=== PATIENT | female | born 1950 | race Caucasian/White ===

== ENCOUNTER 2023-04-23 13:11 | Day surgery (SDC) | payer MEDICARE ==
[~2023-04-23] VITALS: Ht 177.8 cm; Wt 82.6 kg
[2023-04-23] VITALS (7 sets, daily range): BP systolic 172–185; BP diastolic 70–86; PULSE 59–68; TEMP 97.5–98
[~2023-04-23 13:11] MED LIST: ASHWAGANDHA500 MG PO; ASPIRIN E.C. 8181 MG PO; B COMPLEX #11 TA1 PO; BETAPACE 120MG120 MG PO; BIOTIN5000 MCG PO; CEPHALEXIN500 M1 PO; COUMADIN4 MG PO; ELDERBERRY PO; ELIQUIS 5MG PO; EPA FISH OIL1 SGL PO; ESTRACE 1MG1 MG/TAB PO; FLAXSEED OIL1000 MG PO; GARCINIA CAMBOGIA PO; GINKGO4 PO; GREEN TEA EXTR250 MG PO; HCTZ12.5TAB PO; INVANZ INJ1 G/VIAL IV; KERATIN PO; LIPITOR 10MG10 MG PO; MAGNESIUM500 MG PO; MICROZIDE12.5 MG PO; OSCAL 500 TAB500 MG PO; PHARMASSURE ZIN50 MG PO; PRENATAL TABLET PO; PROVERA5 MG; SYNTHROID 0.0.025 MG PO; TAMBOCOR 1100 MG/TAB PO; TOPROL XL 25MG25 MG PO; UBIQUINOL100 MG PO; VITAMIN D31000 I1 PO; VITAMIN E 400 U4001 PO; VITAMINC1000TA PO
--- NOTE | 2023-04-23 17:30 | NUR ---
1550 RETURNS TO ROOM 3 PER CART. AWAKE, ALERT. RESP UNLABORED. AMBULATES TO RECLINER WITH STANDBY ASSIST. DENIES NAUSEA OR ABD PAIN. VITAL SIGNS OBTAINED. WARM BLANKETS APPLIED. CALL LIGHT AT SIDE. DAUGHTER IN ROOM 1605 AWAKE, ALERT. DENIES PAIN. REST ENCOURAGED 1620 CONTINUES TO DENY PAIN OR NAUSEA 1635 TOLERATES SMALL AMOUNT OF WATER PO 1700 IV FLUID DC'D. PICC LINE RIGHT ARM FLUSHED WITHOUT DIFFICULTY 1705 AMBULATES TO BATHROOM WITH STANDBY ASSIST. ADMITS TO VOIDING WITHOUT DIFFICULTY 1710 TOLERATES WATER AND JELLO PO. DENIES PAIN OR NAUSEA 1715 DISCHARGE INSTRUCTIONS REVIEWED. PATIENT VERBALIZES UNDERSTANDING. COPY PROVIDED IN DISCHARGE FOLDER 1725 PATIENT UP IN ROOM DRESSES SELF. DAUGHTER AT SIDE
== END 2023-04-23 17:35 | disposition home or self-care (01) ==
LOC: SDCO 13:11
DX: K80.50 Calculus of bile duct without cholangitis or cholecystitis without obstruction (principal)
CPT/HCPCS: C1769; J1920; J2704; J3010; J7120; Q9967